=== PATIENT | male | born 1970 | race Two or more races ===

== ENCOUNTER 2020-01-09 12:46 | Inpatient (IN) | payer OTHER ==
--- NOTE | 2020-01-09 13:06 | BHS.RME ---
Substance Use & Tx History - Substance Use History Alcohol Substance amount: 8 beers 24 oz Frequency of use: Daily Substance route: Oral Date of Last Use: 01/09/20 (started age 14) Cocaine- Powder Substance amount: $100 Frequency of use: Daily Substance route: Inhalation (ex: sniffing or snorting) Date of Last Use: 01/08/20 Nicotine Substance amount: 1/2 pack Frequency of use: Daily Substance route: Smoking Date of Last Use: 01/09/20 CIWA Nausea/Vomitin-Int. Nausea w/Dry Heave Muscle Tremors: 4-Moderate,w/Arms Extend Anxiety: 4-Mod. Anxious/Guarded Agitation: 4-Moderately Restless Paroxysmal Sweats: 4-Forehead w/Sweat Beads Orientation: 1-Uncertain about Date Tacttile Disturbances: 0-None Auditory Disturbances: 0-None Visual Disturbances: 0-None Headache: 0-None Present CIWA-Ar Total Score: 21
[2020-01-09 14:51] VITALS: BMI 28.5
--- NOTE | 2020-01-09 14:52 | HP ---
CIWA Score Nausea/Vomitin-Int. Nausea w/Dry Heave Muscle Tremors: 4-Moderate,w/Arms Extend Anxiety: 4-Mod. Anxious/Guarded Agitation: 4-Moderately Restless Paroxysmal Sweats: 4-Forehead w/Sweat Beads Orientation: 1-Uncertain about Date Tacttile Disturbances: 0-None Auditory Disturbances: 0-None Visual Disturbances: 0-None Headache: 0-None Present CIWA-Ar Total Score: 21 - Admission Criteria OASAS Guidelines: Admission for Medically Managed Detox: Requires at least one of the followin. CIWA greater than 12 2. Seizures within the past 24 hours 3. Delirium tremens within the past 24 hours 4. Hallucinations within the past 24 hours 5. Acute intervention needed for co occurring medical disorder 6. Acute intervention needed for co occurring psychiatric disorder 7. Severe withdrawal that cannot be handled at a lower level of care (continued vomiting, continued diarrhea, abnormal vital signs) requiring intravenous medication and/or fluids 8. Admitting History and Physical - Admission History of Present Illness: Mr. Gabriel is a 49 yo man who presents to [facility] requesting admission to detox for alcohol use disorder. This is his first admission to [facility]. He was at [facility] today for back pain. He was given Toradol and Lidoderm, had hip xrays, basic labs and told to take naprosyn and cyclobenzaprine after discharge. Substance Use History Alcohol Substance amount: 8 beers 24 oz Frequency of use: Daily Substance route: Oral Date of Last Use: 01/09/20 (started age 14) Cocaine- Powder Substance amount: $100 Frequency of use: Daily Substance route: Inhalation (ex: sniffing or snorting) Date of Last Use: 01/08/20 Nicotine Substance amount: 1/2 pack Frequency of use: Daily Substance route: Smoking Date of Last Use: 01/09/20 MARYBETH: 0 History Source: Patient Limitations to Obtaining History: No Limitations Admission ROS [facility] - [facility] Allergies/Adverse Reactions: Allergies Allergy/AdvReac Type Severity Reaction Status Date / Time No Known Allergies Allergy Verified 01/09/20 14:44 Exam Limitations: No Limitations - Ebola screening Have you traveled outside of the country in the last 21 days: No Have you been sick,other than usual withdrawal symptoms: No Do you have a fever: No - Review of Systems Constitutional: No Symptoms Reported EENT: reports: No Symptoms Reported Respiratory: reports: No Symptoms reported Cardiac: reports: No Symptoms Reported : reports: No Symptoms Reported Musculoskeletal: reports: Back Pain, Other (right hip pain) Integumentary: reports: No Symptoms Reported Neuro: reports: Other (tremulous) Endocrine: reports: No Symptoms Reported Hematology: reports: No Symptoms Reported Psychiatric: reports: Anxious Patient History - Smoking Cessation Smoking history: Current every day smoker Have you smoked in the past 12 months: Yes Aproximately how many cigarettes per day: 10 Hx Chewing Tobacco Use: No Initiated information on smoking cessation: Yes 'Breaking Loose' booklet given: 01/09/20 - Substances abused Alcohol Substance route: Oral Frequency: Daily Amount used: eight 24 oz beer Age of first use: 14 Date of last use: 01/08/20 Admission Physical Exam BHS - Vital Signs Vital Signs: vitals BP 134/68 HR:87 RR: 18 Temp: 97.3 - Physical General Appearance: Yes: No Apparent Distress, Nourished, Appropriately Dressed, Irritable, Anxious HEENTM: Yes: EOMI, Hearing grossly Normal, Normocephalic, Normal Voice Respiratory: Yes: Lungs Clear, No Respiratory Distress, No Accessory Muscle Use Neck: Yes: Within Normal Limits, Supple Breast: Yes: Breast Exam Deferred Cardiology: Yes: Regular Rhythm, Regular Rate Abdominal: Yes: Normal Bowel Sounds, Non Tender, Flat, Soft Genitourinary: Yes: Other (deferred) Back: Yes: Normal Inspection Musculoskeletal: Yes: Gait Steady Extremities: Yes: Normal Inspection, Non-Tender Neurological: Yes: Alert, Normal Response Integumentary: Yes: Within Normal Limits - Diagnostic (1) Alcohol dependence with withdrawal, uncomplicated Current Visit: Yes Status: Acute Comment: 1. Admit detox 2. routine labs 3. Librium protocol (2) Cocaine dependence Current Visit: Yes Status: Acute Qualifiers: Substance use status: uncomplicated Qualified Code(s): F14.20 - Cocaine dependence, uncomplicated Comment: 1. Drug use education (3) Nicotine dependence Current Visit: Yes Status: Acute Qualifiers: Nicotine product type: cigarettes Substance use status: uncomplicated Qualified Code(s): F17.210 - Nicotine dependence, cigarettes, uncomplicated Comment: 1. Nicotine replacement therapy (4) Osteoarthritis Current Visit: Yes Status: Acute Qualifiers: Osteoarthritis location: spine (5) Homeless Current Visit: Yes Status: Acute Comment: 1. pt will meet with counselor once admitted to discuss discharge plan Cleared for Admission S - Detox or Rehab [facility] Level of Care: Medically Managed Detox Regimen/Protocol: Librium Breathalyzer - Breathalyzer Breathalyzer: 0 Urine Drug Screen - Test Device Lot number: [id number] Expiration date: 07/25/21 - Control Is test valid?: Yes - Results Drug screen NEGATIVE: No Urine drug screen results: LISA-Cocaine Inpatient Rehab Admission - Rehab Decision to Admit Inpatient rehab admission?: No
[2020-01-09] MEDS ORDERED: MENTHOL/PHENOL 1 EACH UD MM PRN (15:04)
[2020-01-09] MEDS ORDERED: MAG HYDROX/AL HYDROX/SIMETH 30 ML UNIT-DOSE CUP PO PRN (15:04)
[2020-01-09] MEDS ORDERED: NICOTINE POLACRILEX 2 MG GUM BUC PRN (15:04)
[2020-01-09] MEDS ORDERED: chlordiazePOXIDE HCL 25 MG CAPSULE PO PRN (15:04)
[2020-01-09] MEDS ORDERED: BISMUTH SUBSALICYLATE 262 MG/15 ML BTL PO PRN (15:04)
[2020-01-09] MEDS ORDERED: MAGNESIUM HYDROX 2400MG/30ML ORAL SUSPENSION 30 ML CUP PO PRN (15:04)
[2020-01-09] MEDS ORDERED: ONDANSETRON *ODT* 4 MG TABLET SL PRN (15:04)
[2020-01-09] MEDS ORDERED: MAGNESIUM CITRATE 300 ML BOTTLE PO PRN (15:04)
[2020-01-09] MEDS ORDERED: ACETAMINOPHEN 325 MG TABLET (FP) PO PRN ×2 (15:04)
[2020-01-09] MEDS: NICOTINE 14 MG/24 HOURS TOPICAL PATCH TD SCH (16:54)
--- OUTSIDE RECORDS SUMMARY | 2020-01-09 16:54 | XMS ---
:1970 Author Organization [facility] Support Name Relationship Address Phone UE Unavailable Unavailable Unavailable ANUSHA QUESADA SELF / SAME PATIENT [address] [address] Re-disclosure Warning The records that you are about to access may contain information from federally- assisted alcohol or drug abuse programs. If such information is present, then the following federally mandated warning applies: This information has been disclosed to you from records protected by federal confidentiality rules (42 CFR part 2). The federal rules prohibit you from making any further disclosure of this information unless further disclosure is expressly permitted by the written consent of the person to whom it pertains or as otherwise permitted by 42 CFR part 2. A general authorization for the release of medical or other information is NOT sufficient for this purpose. The Federal rules restrict any use of the information to criminally investigate or prosecute any alcohol or drug abuse patient.The records that you are about to access may contain highly sensitive health information, the redisclosure of which is protected by Article 27-F of the [facility] Public Health law. If you continue you may haveaccess to information: Regarding HIV / AIDS; Provided by facilities licensed or operated by the [facility] Office of Mental Health; or Provided by the [facility] Office for People With Developmental Disabilities. If such information is present, then the following [facility] mandated warning applies: This information has been disclosed to you from confidential records which are protected by state law. State law prohibits you from making any further disclosure of this information without the specific written consent of the person to whom it pertains, or as otherwise permitted by law. Any unauthorized further disclosure in violation of state law may result in a fine or penitentiary sentence or both. A general authorization for the release of medical or other information is NOT sufficient authorization for further disclosure. Insurance Providers Payer name Policy type Policy ID Covered Covered green party's Policy P william / Coverage green party ID relationship to [employer] Inf ormation type peck MEDICAID [id number] SP [id number]
[2020-01-09] MEDS: chlordiazePOXIDE HCL 25 MG CAPSULE PO SCH ×2 (16:55→23:16)
[2020-01-09] MEDS: hydrOXYzine PAMOATE 25 MG CAPSULE (FP) PO SCH ×2 (17:00→23:16)
[2020-01-09 17:32] LABS: ALBUMIN 3.2 g/dl (3.4-5.0); BILIRUBIN,TOTAL 0.8 mg/dL (0.2-1); BLOOD UREA NITROGEN 13.4 mg/dL (7-18); CALCIUM 9.3 mg/dL (8.5-10.1); CREATININE 1.1 mg/dL (0.55-1.3); POTASSIUM 3.9 mmol/L (3.5-5.1); TOT PROT 7.3 g/dl (6.4-8.2)
[2020-01-09 17:50] LABS: HEMOGLOBIN 14.7 GM/dL (11.7-16.9); MCH 31.7 pg (25.7-33.7); MCHC 34.9 g/dl (32.0-35.9); MEAN CELL VOLUME 90.7 fl (80-96); MEAN PLT VOLUME 8.7 fl (7.5-11.1); PLATELET COUNT 440 K/MM3 (134-434); RBC 4.63 M/mm3 (4.00-5.60); RDW 12.9 % (11.9-15.9); WHITE BLOOD COUNT 9.3 K/mm3 (4.0-10.0)
[2020-01-09] MEDS: MELATONIN 5 MG TABLETS PO SCH (23:16)
[2020-01-09] MEDS: THIAMINE HCL 100 MG TABLET (FP) PO SCH (23:16)
[2020-01-10] MEDS: chlordiazePOXIDE HCL 25 MG CAPSULE PO SCH ×4 (05:24→22:25)
[2020-01-10] MEDS: hydrOXYzine PAMOATE 25 MG CAPSULE (FP) PO SCH ×5 (05:24→22:25)
--- NOTE | 2020-01-10 10:06 | EKG ---
Test Reason : Blood Pressure : / mmHG Vent. Rate : 083 BPM Atrial Rate : 083 BPM P-R Int : 164 ms QRS Dur : 094 ms QT Int : 376 ms P-R-T Axes : 080 075 064 degrees QTc Int : 441 ms NORMAL SINUS RHYTHM POSSIBLE ANTERIOR INFARCT , AGE UNDETERMINED ABNORMAL ECG NO PREVIOUS ECGS AVAILABLE Confirmed by Oneal Gupta ([id number]) on 01/10/2020 10:06:34 AM Referred By: Confirmed By:Oneal Gupta
[2020-01-10] MEDS: NICOTINE 14 MG/24 HOURS TOPICAL PATCH TD SCH (10:29)
[2020-01-10] MEDS: PRENATAL VITAMINS W/ FOLIC ACID TABLET (FP) PO SCH (10:29)
[2020-01-10] MEDS: METHOCARBAMOL 500 MG TABLET PO PRN ×2 (10:30→22:25)
--- NOTE | 2020-01-10 14:56 | PN ---
S CIWA - CIWA Score Nausea/Vomitin-Mild Nausea/No Vomiting Muscle Tremors: 3 Anxiety: 3 Agitation: 3 Paroxysmal Sweats: 2 Orientation: 0-Oriented Tacttile Disturbances: 0-None Auditory Disturbances: 0-None Visual Disturbances: 2-Mild Sensitivity Headache: 2-Mild CIWA-Ar Total Score: 16 S Progress Note (SOAP) Subjective: 49 years old male was admitted on 01/09/20 for alcohol withdrawal sx management treating with librium detox regiment ate breakfast and lunch in room tolerated food well tremor with anxiety limited conversation with staff Objective: 01/10/20 14:56 Vital Signs - 24 hr 01/09/20 01/10/20 01/10/20 20:47 06:27 08:42 Temperature 97.7 F 97.7 F 96.8 F L Pulse Rate 71 71 83 Respiratory 18 18 18 Rate Blood Pressure 125/78 134/77 131/73 O2 Sat by Pulse 98 99 Oximetry (%) Laboratory Tests 01/09/20 01/09/20 01/09/20 14:10 14:10 14:10 WBC 9.3 RBC 4.63 Hgb 14.7 Hct 42.0 MCV 90.7 MCH 31.7 MCHC 34.9 RDW 12.9 Plt Count 440 H MPV 8.7 Sodium 139 Potassium 3.9 Chloride 105 Carbon Dioxide 28 Anion Gap 5 L BUN 13.4 Creatinine 1.1 Est GFR (CKD-EPI)AfAm 90.24 Est GFR (CKD-EPI)NonAf 77.86 Random Glucose 89 Calcium 9.3 Total Bilirubin 0.8 AST 28 ALT 47 Alkaline Phosphatase 83 Total Protein 7.3 Albumin 3.2 L Syphilis Serology Reactive A* RPR Titer 01/09/20 14:10 WBC RBC Hgb Hct MCV MCH MCHC RDW Plt Count MPV Sodium Potassium Chloride Carbon Dioxide Anion Gap BUN Creatinine Est GFR (CKD-EPI)AfAm Est GFR (CKD-EPI)NonAf Random Glucose Calcium Total Bilirubin AST ALT Alkaline Phosphatase Total Protein Albumin Syphilis Serology RPR Titer Reactive 1:1 H lab noted syphilis contacted treated mr [facility] detox admission history of syphilis reaction treated with penicillin IM x3 01/10/20 14:58 Assessment: 01/10/20 14:59 alcohol withdrawal Plan: librium regiment
[2020-01-10] MEDS: LIDOCAINE 5% TOPICAL PATCH TP SCH (16:11)
[2020-01-10] MEDS: LIDOCAINE PATCH REMOVAL MC SCH (22:24)
[2020-01-10] MEDS: THIAMINE HCL 100 MG TABLET (FP) PO SCH (22:25)
[2020-01-10] MEDS: MELATONIN 5 MG TABLETS PO SCH (22:25)
[2020-01-11] MEDS: chlordiazePOXIDE HCL 25 MG CAPSULE PO SCH ×4 (05:56→23:01)
[2020-01-11] MEDS: hydrOXYzine PAMOATE 25 MG CAPSULE (FP) PO SCH ×5 (05:57→23:01)
[2020-01-11] MEDS: METHOCARBAMOL 500 MG TABLET PO PRN ×2 (05:59→14:15)
--- NOTE | 2020-01-11 10:50 | PN ---
BHS CIWA - CIWA Score Nausea/Vomitin-Mild Nausea/No Vomiting Muscle Tremors: 2 Anxiety: 2 Agitation: 2 Paroxysmal Sweats: No Perspiration Orientation: 0-Oriented Tacttile Disturbances: 1-Very Mild Itch/Numbness Auditory Disturbances: 0-None Visual Disturbances: 0-None Headache: 2-Mild CIWA-Ar Total Score: 10 BHS Progress Note (SOAP) Subjective: alert,irritable,anxious,interrupted sleep,tremor,aching pain Objective: 01/11/20 16:40 Vital Signs Temperature 98.4 F 01/11/20 13:04 Pulse Rate 79 01/11/20 13:04 Respiratory Rate 18 01/11/20 13:04 Blood Pressure 147/88 01/11/20 13:04 O2 Sat by Pulse Oximetry (%) 99 01/11/20 13:04 Assessment: 01/11/20 16:41 withdrawal sympto Plan: continue detox librium regimen
[2020-01-11] MEDS: PRENATAL VITAMINS W/ FOLIC ACID TABLET (FP) PO SCH (11:22)
[2020-01-11] MEDS: LIDOCAINE 5% TOPICAL PATCH TP SCH (11:23)
[2020-01-11] MEDS: NICOTINE 14 MG/24 HOURS TOPICAL PATCH TD SCH (11:23)
[2020-01-11] MEDS: IBUPROFEN 400 MG TABLET (FP) PO PRN (14:15)
[2020-01-11] MEDS: LIDOCAINE PATCH REMOVAL MC SCH (23:01)
[2020-01-11] MEDS: THIAMINE HCL 100 MG TABLET (FP) PO SCH (23:01)
[2020-01-11] MEDS: MELATONIN 5 MG TABLETS PO SCH (23:01)
[2020-01-12] MEDS ORDERED: chlordiazePOXIDE HCL 10 MG CAPSULE PO PRN
[2020-01-12] MEDS ORDERED: chlordiazePOXIDE HCL 10 MG CAPSULE PO SCH (05:00)
[2020-01-12] MEDS: hydrOXYzine PAMOATE 25 MG CAPSULE (FP) PO SCH (05:17)
[2020-01-12] MEDS: METHOCARBAMOL 500 MG TABLET PO PRN (07:15)
[2020-01-12] MEDS: IBUPROFEN 400 MG TABLET (FP) PO PRN (07:15)
--- NOTE | 2020-01-12 08:57 | PN ---
[facility] CIWA - CIWA Score Nausea/Vomitin-No Nausea/No Vomiting Muscle Tremors: None Anxiety: 1-Mildly Anxious Agitation: 0-Normal Activity Paroxysmal Sweats: No Perspiration Orientation: 0-Oriented Tacttile Disturbances: 0-None Auditory Disturbances: 0-None Visual Disturbances: 0-None Headache: 0-None Present CIWA-Ar Total Score: 1 S Progress Note (SOAP) Subjective: alert,n complaint Objective: 01/12/20 16:20 Vital Signs Temperature 97.3 F L 01/12/20 08:51 Pulse Rate 103 H 01/12/20 08:51 Respiratory Rate 20 01/12/20 08:51 Blood Pressure 117/77 01/12/20 08:51 O2 Sat by Pulse Oximetry (%) 99 01/12/20 06:30 01/12/20 16:21 Laboratory Last Values WBC 9.3 K/mm3 (4.0-10.0) 01/09/20 14:10 RBC 4.63 M/mm3 (4.00-5.60) 01/09/20 14:10 Hgb 14.7 GM/dL (11.7-16.9) 01/09/20 14:10 Hct 42.0 % (35.4-49) 01/09/20 14:10 MCV 90.7 fl (80-96) 01/09/20 14:10 MCH 31.7 pg (25.7-33.7) 01/09/20 14:10 MCHC 34.9 g/dl (32.0-35.9) 01/09/20 14:10 RDW 12.9 % (11.9-15.9) 01/09/20 14:10 Plt Count 440 K/MM3 (134-434) H 01/09/20 14:10 MPV 8.7 fl (7.5-11.1) 01/09/20 14:10 Sodium 139 mmol/L (136-145) 01/09/20 14:10 Potassium 3.9 mmol/L (3.5-5.1) 01/09/20 14:10 Chloride 105 mmol/L (98-107) 01/09/20 14:10 Carbon Dioxide 28 mmol/L (21-32) 01/09/20 14:10 Anion Gap 5 MMOL/L (8-16) L 01/09/20 14:10 BUN 13.4 mg/dL (7-18) 01/09/20 14:10 Creatinine 1.1 mg/dL (0.55-1.3) 01/09/20 14:10 Est GFR (CKD-EPI)AfAm 90.24 01/09/20 14:10 Est GFR (CKD-EPI)NonAf 77.86 01/09/20 14:10 Random Glucose 89 mg/dL (74-106) 01/09/20 14:10 Calcium 9.3 mg/dL (8.5-10.1) 01/09/20 14:10 Total Bilirubin 0.8 mg/dL (0.2-1) 01/09/20 14:10 AST 28 U/L (15-37) 01/09/20 14:10 ALT 47 U/L (13-61) 01/09/20 14:10 Alkaline Phosphatase 83 U/L (45-117) 01/09/20 14:10 Total Protein 7.3 g/dl (6.4-8.2) 01/09/20 14:10 Albumin 3.2 g/dl (3.4-5.0) L 01/09/20 14:10 Syphilis Serology Reactive (NONREACTIVE) A* 01/09/20 14:10 RPR Titer Reactive 1:1 (NONREACTIVE) H 01/09/20 14:10 COVID-19 (JSOEFA) Not detected (Not Detected) 01/09/20 15:00 treated for syphilis in the past Assessment: 01/12/20 16:21 no withdrawal symptom Plan: stable for discharge,follow up with after care program as arrangement
--- NOTE | 2020-01-12 09:35 | DS ---
[facility] Detox Discharge Summary Admission Date: 01/09/20 Discharge Date: 01/12/20 - History Present History: Alcohol Dependence, Cocaine Dependence Additional Comments: alert,oriented x 3 ambulation on the unit lung clear on auscultation bilaterally abdomen soft,no pain no withdrawal symptom stable for discharge decline rehab follow up with after care program as arrangement total time of discharge 30 minutes Pertinent Past History: osteoarthritis nicotine dependence syphilis treated - Physical Exam Results Vital Signs: Vital Signs Temperature 98.5 F 01/12/20 06:30 Pulse Rate 79 01/12/20 06:30 Respiratory Rate 18 01/12/20 06:30 Blood Pressure 141/81 01/12/20 06:30 O2 Sat by Pulse Oximetry (%) 99 01/12/20 06:30 Pertinent Admission Physical Exam Findings: withdrawal signs and symptom Vital Signs Temperature 97.3 F L 01/12/20 08:51 Pulse Rate 103 H 01/12/20 08:51 Respiratory Rate 20 01/12/20 08:51 Blood Pressure 117/77 01/12/20 08:51 O2 Sat by Pulse Oximetry (%) 99 01/12/20 06:30 Laboratory Last Values WBC 9.3 K/mm3 (4.0-10.0) 01/09/20 14:10 RBC 4.63 M/mm3 (4.00-5.60) 01/09/20 14:10 Hgb 14.7 GM/dL (11.7-16.9) 01/09/20 14:10 Hct 42.0 % (35.4-49) 01/09/20 14:10 MCV 90.7 fl (80-96) 01/09/20 14:10 MCH 31.7 pg (25.7-33.7) 01/09/20 14:10 MCHC 34.9 g/dl (32.0-35.9) 01/09/20 14:10 RDW 12.9 % (11.9-15.9) 01/09/20 14:10 Plt Count 440 K/MM3 (134-434) H 01/09/20 14:10 MPV 8.7 fl (7.5-11.1) 01/09/20 14:10 Sodium 139 mmol/L (136-145) 01/09/20 14:10 Potassium 3.9 mmol/L (3.5-5.1) 01/09/20 14:10 Chloride 105 mmol/L (98-107) 01/09/20 14:10 Carbon Dioxide 28 mmol/L (21-32) 01/09/20 14:10 Anion Gap 5 MMOL/L (8-16) L 01/09/20 14:10 BUN 13.4 mg/dL (7-18) 01/09/20 14:10 Creatinine 1.1 mg/dL (0.55-1.3) 01/09/20 14:10 Est GFR (CKD-EPI)AfAm 90.24 01/09/20 14:10 Est GFR (CKD-EPI)NonAf 77.86 01/09/20 14:10 Random Glucose 89 mg/dL (74-106) 01/09/20 14:10 Calcium 9.3 mg/dL (8.5-10.1) 01/09/20 14:10 Total Bilirubin 0.8 mg/dL (0.2-1) 01/09/20 14:10 AST 28 U/L (15-37) 01/09/20 14:10 ALT 47 U/L (13-61) 01/09/20 14:10 Alkaline Phosphatase 83 U/L (45-117) 01/09/20 14:10 Total Protein 7.3 g/dl (6.4-8.2) 01/09/20 14:10 Albumin 3.2 g/dl (3.4-5.0) L 01/09/20 14:10 Syphilis Serology Reactive (NONREACTIVE) A* 01/09/20 14:10 RPR Titer Reactive 1:1 (NONREACTIVE) H 01/09/20 14:10 COVID-19 (JOSEFA) Not detected (Not Detected) 01/09/20 15:00 history of syphilis treated - Treatment Hospital Course: Detox Protocol Followed, Detoxed Safely, Responded well, Discharged Condition Good Patient has Accepted a Rehab Referral to: declined - Medication Discharge Medications: Ambulatory Orders NK [No Known Home Medication] 01/09/20 - Diagnosis (1) Alcohol dependence with withdrawal, uncomplicated Status: Acute (2) Cocaine dependence Status: Acute Qualifiers: Substance use status: uncomplicated Qualified Code(s): F14.20 - Cocaine dependence, uncomplicated (3) Nicotine dependence Status: Acute Qualifiers: Nicotine product type: cigarettes Substance use status: uncomplicated Qualified Code(s): F17.210 - Nicotine dependence, cigarettes, uncomplicated (4) Osteoarthritis Status: Acute Qualifiers: Osteoarthritis location: spine (5) Syphilis contact, treated Status: Acute - AMA Did Patient Leave Against Medical Advice: No
[2020-01-12 09:51] VITALS: BP 117/77; PULSE 103; TEMP 97.3
[2020-01-13] MEDS ORDERED: chlordiazePOXIDE HCL 10 MG CAPSULE PO SCH (05:00)
[2020-01-14] MEDS ORDERED: chlordiazePOXIDE HCL 10 MG CAPSULE PO ONE (05:00)
== END 2020-01-12 10:53 | disposition home or self-care (01) | DRG 774 ==
LOC: YASAS 12:46 → Y3N 15:20
PROVIDERS: ADMIT Allergy & Immunology; ATTEND Allergy & Immunology
PROC: HZ2ZZZZ Detoxification Services for Substance Abuse Treatment (ICD-10-PCS; principal; 2020-01-09)
DX: F10.230 Alcohol dependence with withdrawal, uncomplicated (principal); F14.20 Cocaine dependence, uncomplicated; F17.210 Nicotine dependence, cigarettes, uncomplicated; A53.0 Latent syphilis, unspecified as early or late; M47.819 Spondylosis without myelopathy or radiculopathy, site unspecified; M25.551 Pain in right hip; Z59.0 Homelessness
CPT/HCPCS: 36415; 71046-TC-FY; 80053; 85027; 86593; 86780; 93005; 93010; U0003